=== PATIENT | female | born 1965 | race Caucasian/White ===

== ENCOUNTER 2023-10-08 10:43 | Inpatient (IN) | payer BC, OTHER ==
[~2023-10-08] VITALS: Ht 162.6 cm; Wt 81.6 kg
--- NOTE | 2023-10-08 10:54 | NUR ---
PT IS IN ROOM #2A. DR MALCOLM EVALUATED THE PT.
[2023-10-08 11:04] LABS: BASOPHILS # (AUTO) 0.1 K/UL (0.0-0.2); BASOPHILS % (AUTO) 0.9 % (0.0-2.0); EOSINOPHILS # (AUTO) 0.3 K/uL (0.0-0.7); EOSINOPHILS % (AUTO) 2.7 % (0.0-7.0); HEMATOCRIT 42.4 % (31.2-41.9); HEMOGLOBIN 14.3 g/dL (10.9-14.3); LYMPHOCYTES # (AUTO) 4.7 K/uL (0.8-4.8); LYMPHOCYTES % (AUTO) 48.3 % (20.5-51.5); MEAN CORPUSCULAR HEMOGLOBIN 29.4 uug (24.7-32.8); MEAN CORPUSCULAR HGB CONC 34 g/dL (32.3-35.6); MEAN CORPUSCULAR VOLUME 87.2 fL (75.5-95.3); MONOCYTES # (AUTO) 0.9 K/uL (0.1-1.30); MONOCYTES % (AUTO) 8.9 % (0.0-11.0); NEUTROPHILS # (AUTO) 3.8 K/uL (1.8-8.9); NEUTROPHILS % (AUTO) 39.2 % (38.5-71.5); PLATELET COUNT (AUTO) 281 K/uL (179-408); RED BLOOD CELL COUNT(AUTO) 4.86 MIL/uL (3.63-4.92); RED CELL DISTRIBUTION WIDTH 12.3 % (12.3-17.7); WHITE BLOOD COUNT (AUTO) 9.7 K/uL (3.8-11.8)
[2023-10-08] MEDS: IV NORMAL SALINE 1000 ML BAG IV ONE (11:06)
[2023-10-08 11:41] LABS: LACTIC ACID 2.1 mmol/L (0.4-2.0)
[2023-10-08 11:44] LABS: CALCIUM 9.1 mg/dL (8.5-10.1); CARBON DIOXIDE 24 mmol/L (21-32); CHLORIDE 107 mmol/L (98-107); GLUCOSE 127 mg/dL (74-106); POTASSIUM 3.9 mmol/L (3.5-5.1); SODIUM SERUM 141 mmol/L (136-145); UREA NITROGEN, BLOOD 14 mg/dL (7-18)
[2023-10-08 11:48] LABS: ALANINE AMINOTRANSFERASE 31 U/L (14-59); ALBUMIN 3.6 g/dL (3.4-5.0); ALKALINE PHOSPHATASE 113 U/L (50-136); ASPARTATE AMINOTRANSFERASE 17 U/L (15-37); BILIRUBIN,DIRECT 0.1 mg/dL (0.0-0.2); BILIRUBIN,TOTAL 0.4 mg/dL (0.2-1.0)
--- NOTE | 2023-10-08 12:21 | NUR ---
SAIDA Jimenez, [facility] CALL[facility] AND REQUESTED TO CALL HER WHEN PT IS D/[place] SO SHE CAN ARRANGE FOR THE TRANSPORT. [phone], ALSO SHE REQUESTED ANY PX BE SENT TO THE FOLLOWING PHARMACY: [id number] [facility]
[2023-10-08] MEDS ORDERED: ASPIRIN 81 MG TAB.CHEW ONE (14:19)
[2023-10-08] MEDS: ASPIRIN 81 MG TAB.CHEW PO ONE (14:24)
--- NOTE | 2023-10-08 16:01 | NUR ---
PT WAS TRANSFERED TO TELEMETRY ROOM #306. REPORT WAS GIVEN TO FURNITURE ASSEMBLER AND INSTALLER.
[2023-10-08] MEDS ORDERED: BUPR150T10 (16:05)
[2023-10-08 16:30] VITALS: BP 121/64; TEMP 97.9; O2SAT 98
--- NOTE | 2023-10-08 17:04 | NUR ---
1600 PT ARRIVED TO THE UNIT. PT A/OX4 ON RA NO SOB OR DISTRESS NOTED, NO COMPLAIN OF PAIN, HEADACHE, VS WNL. IV SITE IS INTACT. SKIN IS INTACT. EXTERNAL WATCH ASSEMBLY INSPECTOR PLACED. TROPONIN 79
[2023-10-08] MEDS ORDERED: MAGNESIUM HYDROXIDE 30 ML LIQUID UDC PO PRN (18:15)
[2023-10-08] MEDS ORDERED: TEMAZEPAM 15 MG CAPSULE PO PRN (18:15)
[2023-10-08] MEDS ORDERED: ACETAMINOPHEN 325 MG TABLET PO PRN (18:15)
--- NOTE | 2023-10-08 18:50 | NUR ---
RECEIVED A CALL FROM THE SAIDA LANDIS FROM [facility] WHERE PT STAYED FOR 8 DAYS (METHAMPHETAMINE ABUSE). SHE WASN'T AWARE THAT PT WAS ADMITTED TO [facility]. ACCORDING TO HER, PT WENT FOR A WALK AND DIDN'T FEEL WELL. 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 SHE ASKED TO CHECK PT FOR HYPOTHYROIDISM (PT DIDN'T TREAT IT) NOTIFIED.
--- NOTE | 2023-10-08 19:16 | NUR ---
PT GOT ANXIOUS. PT ON 2 L NC
[2023-10-08] MEDS: LORAZEPAM 1 MG TABLET PO PRN (19:41)
[2023-10-08] MEDS: IV NS 1000 ML 1,000 ML IV PRN (19:57)
[2023-10-08 19:59] VITALS: BP 110/78; TEMP 97.7; O2SAT 98
--- NOTE | 2023-10-08 20:00 | NUR ---
Received patient lying in bed. AAOX4. In no acute distress. Denies any pain or SOB. Complain of anxiety. Informed Dr. Espinosa and ordered Ativan PRN. IV site on right AC intact and patent. IVF initiated per order. Other needs assessed and attended to. Safety measure initiated and call light within reached.
[2023-10-08 23:42] LABS: *BILIRUBIN,URIN NEGATIVE (NEGATIVE); *BLOOD, URINE NEGATIVE (NEGATIVE); *CLARITY,URINE CLEAR (CLEAR); *COLOR,URINE YELLOW (YELLOW); *KETONES,URINE NEGATIVE (NEGATIVE); *PROTEIN,URINE NEGATIVE (NEGATIVE); *UROBILINOGEN,URINE 0.2 E.U./dl (NORMAL); LEUKOCYTE ESTERASE ,URINE 1+ (NEGATIVE); NITRITE, URINE NEGATIVE (NEGATIVE); UGLUCOSE NEGATIVE (NEGATIVE)
[2023-10-08 23:50] LABS: *AMPHETAMINE, URINE NEGATIVE (NEGATIVE); *BARBITURATE, URINE NEGATIVE (NEGATIVE); *BENZODIAZEPINE, URINE NEGATIVE (NEGATIVE); *CANNABINOID, URINE NEGATIVE (NEGATIVE); *COCCAINE, URINE NEGATIVE (NEGATIVE); *OPIATE, URINE NEGATIVE (NEGATIVE); *PHENCYCLIDINE SCREEN,URINE NEGATIVE (NEGATIVE); FENTANYL, URINE NEGATIVE (NEGATIVE)
[2023-10-09] VITALS (9 sets, daily range): BP systolic 95–125; BP diastolic 54–78; TEMP 97.5–97.9; O2SAT 97–100
[2023-10-09 00:31] LABS: RBC,URINE NONE SEEN /HPF (0-3)
[2023-10-09 00:32] LABS: BACTERIA,URINE FEW /HPF (NONE SEEN); SQUAMOUS EPITHELIAL CELL,UR FEW /HPF (NONE SEEN)
--- NOTE | 2023-10-09 04:48 | NUR ---
Slept well through out the night. No further complain of anxiety. SR on tele with HR of 60/min. IVF continue to infused. Needs attended to and met. Safety measure maintained.
[2023-10-09] MEDS ORDERED: BUPR-96 PO (06:21)
[2023-10-09 06:45] LABS: BASOPHILS # (AUTO) 0.1 K/UL (0.0-0.2); BASOPHILS % (AUTO) 1.1 % (0.0-2.0); EOSINOPHILS # (AUTO) 0.3 K/uL (0.0-0.7); HEMATOCRIT 37.7 % (31.2-41.9); HEMOGLOBIN 12.9 g/dL (10.9-14.3); LYMPHOCYTES # (AUTO) 2.7 K/uL (0.8-4.8); LYMPHOCYTES % (AUTO) 42.6 % (20.5-51.5); MEAN CORPUSCULAR HEMOGLOBIN 29.9 uug (24.7-32.8); MEAN CORPUSCULAR HGB CONC 34 g/dL (32.3-35.6); MEAN CORPUSCULAR VOLUME 87.4 fL (75.5-95.3); MONOCYTES # (AUTO) 0.6 K/uL (0.1-1.30); MONOCYTES % (AUTO) 9.3 % (0.0-11.0); NEUTROPHILS # (AUTO) 2.7 K/uL (1.8-8.9); PLATELET COUNT (AUTO) 243 K/uL (179-408); RED BLOOD CELL COUNT(AUTO) 4.31 MIL/uL (3.63-4.92); RED CELL DISTRIBUTION WIDTH 12.2 % (12.3-17.7); WHITE BLOOD COUNT (AUTO) 6.4 K/uL (3.8-11.8)
[2023-10-09 07:10] LABS: DIFFERENTIAL COMMENT 1
--- NOTE | 2023-10-09 07:30 | NUR ---
0730 PT LAYING IN THE BED A/OX4 ON RA NO SOB OR DISTRESS NOTED, NO COMPLAIN OF PAIN, HEADACHE, VS WNL. IV SITE IS INTACT. EXTERNAL SHEARER HELPER PLACED. 0737 RECEIVED A CALL FROM THE LAB. CRITICAL LAB VALUE TROPONIN 83. NOTIFIED. RECEIVED A CALL FROM THE SAIDA LANDIS FROM [facility] AND SHE ASKED TO NOTIFY HER WHEN PT WILL BE DISCHARGED.
[2023-10-09 07:34] LABS: BILIRUBIN,TOTAL 0.3 mg/dL (0.2-1.0); CALCIUM 8.6 mg/dL (8.5-10.1); CREATININE 0.8 mg/dL (0.6-1.3); MAGNESIUM 2.1 mg/dL (1.8-2.4); PHOSPHOROUS 4.2 mg/dL (2.5-4.9); POTASSIUM 4.3 mmol/L (3.5-5.1); TOTAL PROTEIN, SERUM 5.8 g/dL (6.4-8.2)
[2023-10-09 08:16] LABS: THYROID STIMULATING HORMONE 0.016 mIU/mL (0.358-3.740)
[2023-10-09] MEDS: buPROPion XL 150 MG TAB.SR.24H PO SCH (08:28)
[2023-10-09] MEDS: ASPIRIN EC 81 MG TABLET.DR PO SCH (08:28)
[2023-10-09] MEDS: FAMOTIDINE 20 MG TABLET PO SCH (08:28)
[2023-10-09] MEDS ORDERED: buPROPion SR 150 MG TABLET.SA PO SCH (09:00)
--- NOTE | 2023-10-09 17:41 | NUR ---
PT DISCHARGED. SAIDA LANDIS FROM [facility] NOTIFIED. VS WNL NO SOB OR DISTRESS NOTED, NO COMPLAIN OF PAIN. IV REMOVED, DISCHARGE INSTRUCTIONS PROVIDED, PT VERBALIZED UNDERSTANDING. PT LEFT UNIT VIA THE WHEELCHAIR. SAIDA LANDIS FROM [facility] ORDERED UBER FOR THE PT, PT LEFT TO THE FACILITY VIA UBER. .
== END 2023-10-09 17:40 | disposition other institution (70) | DRG 641 ==
LOC: ER 10:43 → TELE3 15:39
PROVIDERS: ADMIT Internal Medicine; ATTEND Internal Medicine
DX: E86.0 Dehydration (principal); R79.89 Other specified abnormal findings of blood chemistry; E66.9 Obesity, unspecified; Z68.30 Body mass index [BMI] 30.0-30.9, adult; F15.21 Other stimulant dependence, in remission; E07.9 Disorder of thyroid, unspecified; R73.9 Hyperglycemia, unspecified; Z86.59 Personal history of other mental and behavioral disorders
CPT/HCPCS: 36415; 71045; 83605; 83735; 84100; 84443; 84484; 85025; 93005; 93307; A4606; A4663; G0378; J7040